=== PATIENT | female | born 2000 | race Caucasian/White ===

== ENCOUNTER 2020-04-19 14:39 | Emergency (ER) | payer SELFPAY ==
[~2020-04-19] VITALS: Ht 167.6 cm; Wt 65.9 kg
[2020-04-19 14:56] VITALS: BP 127/87; TEMP 96.9
[2020-04-19] MEDS ORDERED: EZFE 200200 MG (15:34)
[2020-04-19] MEDS ORDERED: AMOXICILLIN 8751 TAB PO (16:37)
[2020-04-19 17:01] VITALS: PULSE 72
== END 2020-04-19 17:01 | disposition home or self-care (01) ==
LOC: COL.ER 14:39
DX: S51.032A Puncture wound without foreign body of left elbow, initial encounter (principal); W54.0XXA Bitten by dog, initial encounter; Y92.009 Unspecified place in unspecified non-institutional (private) residence as the place of occurrence of the external cause